=== PATIENT | male | born 1990 | race American Indian/Alaskan Native ===

== ENCOUNTER 2017-05-28 07:53 | Emergency (ER) | payer SELFPAY ==
[2017-05-28 08:01] VITALS: BP 129/72
[2017-05-28] MEDS ORDERED: DELTASONE PO ONE (08:05)
[2017-05-28] MEDS ORDERED: PROVENTIL IH ONE (08:05)
[2017-05-28] MEDS ORDERED: ATROVENT IH ONE (08:05)
== END 2017-05-28 08:35 | disposition left against medical advice (07) ==
LOC: ED 07:53
DX: R06.02 Shortness of breath (principal); Z53.21 Procedure and treatment not carried out due to patient leaving prior to being seen by health care provider
CPT/HCPCS: 94640; J7512